=== PATIENT | male | born 1960 | race Caucasian/White ===

== ENCOUNTER 2017-09-13 06:58 | Observation (INO) | payer MEDICARE, OTHER ==
[~2017-09-13] VITALS: Ht 170.2 cm; Wt 105.7 kg
[2017-09-13] VITALS (21 sets, daily range): BP systolic 115–186; BP diastolic 54–93; PULSE 56–80; RESP 14–23; Ht 170.2 cm; Wt 105.7 kg
[~2017-09-13 06:58] MED LIST: ASPI325T4 PO; ATOR40TA68 PO; CARI350T29 PO; CLOP75TA27 PO; GABA-526 PO; HYDR-762 PO; LISI20TA11 PO; LORA-444 PO; METF500T4 PO; POTA20PA10 PO
[2017-09-13] MEDS ORDERED: METF1000 PO (08:36)
[2017-09-13] MEDS ORDERED: HYDR-902 PO (08:38)
[2017-09-13 08:46] LABS: BASOPHIL # 0.1 10^3/ul (0.0-0.1); BASOPHILS % 0.7 % (0.0-2.0); EOSINOPHILS # 0.1 10^3/ul (0.0-0.5); HEMATOCRIT 39.4 % (42.0-52.0); HEMOGLOBIN 13.1 g/dl (14.0-18.0); LYMPHOCYTES # 2.4 10^3/ul (0.8-2.9); LYMPHOCYTES % 23.9 % (15.0-51.0); MEAN CORPUSCULAR HEMOGLOBIN 29.8 pg (29.0-33.0); MEAN CORPUSCULAR HGB CONC 33.2 g/dl (32.0-37.0); MEAN CORPUSCULAR VOLUME 89.7 fl (82.0-101.0); MONOCYTE # 0.5 10^3/ul (0.3-0.9); MONOCYTES % 5.2 % (0.0-11.0); NEUTROPHIL # 6.8 10^3/ul (1.6-7.5); PLATELET COUNT 204 10^3/UL (140-415); RED BLOOD COUNT 4.39 10^6/ul (4.70-6.10); RED CELL DISTRIBUTION WIDTH 13.6 % (11.5-14.5); WHITE BLOOD COUNT 9.9 10^3/ul (4.8-10.8)
[2017-09-13 09:03] LABS: INR 0.88; PROTIME 11.9 Sec (12.2-14.2); PT RATIO 0.9
--- NOTE | 2017-09-13 09:03 | RADRPT ---
PROCEDURE: XR Chest. CLINICAL INDICATION: Preoperative TECHNIQUE: Single frontal view of the chest was obtained COMPARISON: None FINDINGS: The heart and mediastinum are within normal limits. The lungs are clear. There is no pleural effusion or pneumothorax. RPTAT: AA IMPRESSION: No acute disease. .Kervin Del Angel MD, Date Time Electronically viewed and signed by .Kervin Del Angel MD, on 09/13/2017 09:03 .S/
[2017-09-13 09:07] LABS: BILIRUBIN,INDIRECT 0.1 mg/dl (0-1.1)
[2017-09-13 09:08] LABS: ALBUMIN 3.9 g/dl (3.3-4.9); ALBUMIN/GLOBULIN RATIO 1.18; BILIRUBIN,TOTAL 0.1 mg/dl (0.2-1.3); CALCIUM 9.2 mg/dl (8.4-10.2); CREATININE 0.67 mg/dl (0.61-1.24); POTASSIUM 3.5 mmol/L (3.5-5.1); TOTAL PROTEIN 7.2 g/dl (6.1-8.1)
[2017-09-13] MEDS ORDERED: IODIXANOL LOCM 100 ML BTL ONE ×2 (09:25→10:26)
[2017-09-13] MEDS ORDERED: LIDOCAINE 1% (MDV) 20 ML INJ ONE (09:25)
[2017-09-13] MEDS ORDERED: HEPARIN 1000 UNITS/ML 10 ML INJ ONE (09:25)
[2017-09-13] MEDS ORDERED: MIDAZOLAM 1 MG/ML 2 ML INJ ONE (09:25)
[2017-09-13] MEDS ORDERED: VERAPAMIL 5 MG INJ ONE (09:26)
[2017-09-13] MEDS ORDERED: NITROGLYCERIN (IC) 100 MCG/ML INJ ONE (09:26)
[2017-09-13] MEDS ORDERED: FENTAnyl 50 MCG/ML VIAL ONE (09:26)
[2017-09-13 10:12] LABS: PARTIAL THROMBOPLASTIN TIME 24.7 Sec (25.0-35.0)
[2017-09-13] MEDS ORDERED: IODIXANOL LOCM 50 ML BTL ONE (10:25)
[2017-09-13] MEDS ORDERED: ASPIRIN 325 MG TAB ONE (10:55)
[2017-09-13] MEDS ORDERED: CLOPIDOGREL 300 MG TAB ONE ×2 (10:55→11:02)
--- NOTE | 2017-09-13 11:08 | SIPON ---
Date/Time of Note Date/Time of Note DATE: 09/13/17 TIME: 11:07 Operative Report Preoperative Diagnosis 1.[place]gin 2.Abnl MPI Postoperative Diagnosis 1.Obstructive cad Operation/Procedure Performed 1.C 2.PTCA/stent x 1 to LAD with NATHAN Surgeon see signature line executive staff assistant 1.Fabián Anesthesia: moderate sedation Estimated blood loss: minimal Transfusion Required none Specimen NA Grafts/Implants none Complications none NOHELIA SCOTT Sep 13, 2017 11:08
[2017-09-13] MEDS ORDERED: SOD CHLORIDE 0.9% 1,000 ML IV SCH (11:09)
[2017-09-13] MEDS ORDERED: ZOLPIDEM 5 MG TAB PO PRN (11:30)
[2017-09-13] MEDS ORDERED: AL HYDROX/MG HYDROX/SIMETH 30 ML CUP PO PRN (11:30)
[2017-09-13] MEDS ORDERED: ONDANSETRON 4 MG INJ IV PRN (11:30)
[2017-09-13] MEDS ORDERED: ACETAMINOPHEN 325 MG TAB PO PRN (11:30)
[2017-09-13] MEDS: OXYCODONE/ACETAMINOPHEN (5/325) TAB PO PRN ×2 (12:06→16:07)
--- NOTE | 2017-09-13 13:37 | CARRPT ---
DATE OF PROCEDURE: 09/13/2017 TYPE OF PROCEDURE: 1. Left heart catheterization. 2. Coronary angiography. 3. Percutaneous transluminal coronary angioplasty with placement of Synergy drug-eluting stent x1 t o proximal LAD, 3.5 x 24 mm. 4. Moderate conscious sedation. ATTENDING PHYSICIAN: Nohelia Scott MD REFERRING PHYSICIAN: Self-referred. INDICATION: Chest pain with positive ischemia anterior distribution, high risk marker for cardiovas cular events. BRIEF HISTORY: Mr. Pride is a 56-year-old male with history of hypertension, dyslipidemia, severe co ronary artery disease, status post prior PTCA and stent placement with bare metal stent in 05/2016 t o proximal LAD, ongoing tobacco usage, who initially presented with complaints of substernal chest p ain. The patient was placed ascending medical therapy, continued chest pain and required cardiac st ress test revealing anterior ischemia. Given these findings, referred for and presents today in ord er to undergo left heart catheterization to assess for possibly significant obstructive coronary dis ease with recurrent symptoms of chest pain and subsequent positive stress test findings. PROCEDURE: After informed consent was obtained, the patient was brought the [facility] cardiac catheterization lab where his right radial artery was prepped and draped in usual ster ile fashion. Lidocaine 2% was inserted into the right radial artery in order to achieve adequate lo kamaljit anesthesia. Using the modified Seldinger technique, the right radial artery was cannulated and a 6-Greek arterial sheath was placed. A 6-Greek JL3.5 catheter was used to cannulate the left sridhar n coronary ostium with contrast injection, multiple views of the left coronary arterial system were obtained. A JL3.5 was removed over a guidewire and JR4 was used to cannulate the right coronary art erial ostium. With contrast injection, multiple views of the right coronary arterial system obtaine d. JR4 was removed over a guidewire and after being additionally used to cross LV and measure LVEDP and pullback across the aortic valve to assess for significant gradient, which there was not and re moved. Subsequently, at this time, we directly entered into an interventional procedure given the p atient to have restenosis of proximal LAD stent in an area before this as well to approximately 90%. Subsequently, at this time, the patient had HD checked, coming back within normal limits for accep table limits for ACT. The patient had a 0.014 ____ wire past distal to the lesion in the LAD. Pret reated with a 2.5 x 15 mm balloon inflated to 14 atmospheres x2 and removed. Subsequently, this les ion was stented with a 3.5 x 24 mm drug-eluting stent inflated to 14 atmospheres, post-dilated with the stent delivery system up to 16 atmospheres. Stent delivery system was then used to post-dilate the stent overlap area and removed. Subsequently, at this time, follow up angiographic image reveal ed excellent result deployment of the stent, JADA 3 flow throughout the vessel, no signs of complica tion including perforation, dissection, but there was a diagonal one that bifurcates proximally in t his vessel that had very sluggish flow and suffered significant plaque shift. Subsequently, a 0.014 Racket [employer]er 50 guidewire was passed into the diagonal and we tentatively passed first at 2.0 and then a 1 .25 balloon unsuccessfully and tried a enrique wire into the LAD and again tried to pass this balloon unsuccessfully. Subsequently, at this time, with the wire removed after just having the wire passed through the vessel, there was significantly improved flow. Subsequently, at this time, the patient was given 200 mcg of IC nitroglycerin. Further angiograms were obtained revealing excellent result deployment of the stent, JADA 3 flow throughout the vessel, no signs of complication including perf oration or dissection, and excellent flow now within the patient's diagonal. Subsequently, at this time, the interventional guide and guidewires were removed. The patient was given 600 mg p.o. Plavi x and 325 mg of aspirin. This completed the procedure. There were no noted complications. FINDINGS: 1. CORONARY ANGIOGRAPHY: The circumflex proximally is a 3.5 mm vessel and had no significant steno sis in this area. Circ continuation AV groove is free of significant focal stenoses. There is a mi d- branching obtuse multiple 3 mm vessel with a 20% stenosis. The LAD proximally is a 3.5 mm vessel and it has a long tubular area of in-stent restenosis up to approximately 90% that bifurcates midwa y through. There is then a mid-branching diagonal in the second portion of the stented zone, which has a 70% to 80% stenosis but excellent flow. The right coronary artery was a 3.5 mm vessel had no significant focal stenosis throughout its entirety. PTCA and stent placement: Prior to PTCA and stent placement, the patient had a 90% in-stent resteno sis in the proximal LAD. Post-PTCA and stent placement, the patient had no residual stenosis, JADA 3 flow throughout the vessel, no signs of complication including perforation or dissection and addit ionally noted that the end of the procedure, the patient did have significantly improved flow in the diagonal JADA 3. Measurement left ventricular end diastolic pressure 26. TOTAL FLUOROSCOPY TIME: 14.3 minutes. TOTAL CONTRAST: 87 mL. IMPRESSION: 1. Single vessel obstructive coronary artery disease involving high grade lesions in the patient's LAD in-stent restenosis, status post successful PTCA and stent placement with drug-eluting stent 3.5 x 24 mm. 2. Elevated left heart filling pressures. 3. No significant aortic stenosis by gradient. RECOMMENDATIONS: In light of findings at this time would: 1. Maintain patient on Plavix 75 mg 1 tab p.o. daily for at least 1 year. 2. Aspirin 325 mg 1 tab p.o. daily indefinitely. 3. Maximize medical management. Aggressive risk factor reduction. 4. Patient will be admitted to the ICU for post-intervention observation and continued management o f symptoms. Dictated By: NOHELIA ZHU/MARK Conf#: [id number] DID#: [id number] CC: NOHELIA SCOTT MD;*EndCC*
[2017-09-13] MEDS: INSULIN ASPART [NOVOLOG] 3 ML PEN SC SCH ×2 (17:52→20:42)
[2017-09-13] MEDS ORDERED: GLUCOSE GEL 15 GRAM TUBE PO PRN ×2 (18:00)
[2017-09-13] MEDS ORDERED: GLUCAGON 1 MG INJ IM PRN (18:00)
[2017-09-13] MEDS ORDERED: DEXTROSE 50% 50 ML SYRINGE IV PRN ×2 (18:00)
[2017-09-13] MEDS ORDERED: GLUCOSE GEL 15 GRAM TUBE BUCCAL PRN (18:00)
[2017-09-13] MEDS ORDERED: morphine 2 MG INJ IV PRN (18:30)
[2017-09-13] MEDS: CARISOPRODOL 350 MG TAB PO PRN (18:39)
[2017-09-13] MEDS: NICOTINE (21 MG/24 HR) PATCH TRANSDERM SCH (20:55)
[2017-09-14] VITALS (13 sets, daily range): BP systolic 113–142; BP diastolic 52–76; PULSE 54–73; RESP 13–23
[2017-09-14] MEDS: OXYCODONE/ACETAMINOPHEN (5/325) TAB PO PRN (01:55)
[2017-09-14] MEDS ORDERED: ACCU-CHEK XX SCH ×2 (02:00)
[2017-09-14] MEDS: CARISOPRODOL 350 MG TAB PO PRN (03:51)
--- NOTE | 2017-09-14 03:58 | HP ---
DATE OF ADMISSION: 09/13/2017 REASON FOR ADMISSION: Elective cardiac angiogram. HISTORY OF PRESENT ILLNESS: The patient is a 56-year-old [place] male, very well known to me from recent about slightly more than a year ago. At that time, he had an acute [place] and coronary art cathi disease where the LAD was stented. The patient continues to follow up with Dr. Mcnamara and then he presented again with chest pain. He now underwent angiogram today, which showed in-stent stenos is in the LAD, high-grade stenosis. The LAD proximally is a 3.5 mm vessel. It has long tubular are a of in-stent restenosis up to approximately 90% that bifurcates midway through. underwent pe rcutaneous transluminal coronary angioplasty with placement of Synergy drug-eluting stent x1 to the proximal LAD. Patient tolerated procedure well. This was done through the right radial approach. Patient now in the intensive care unit in stable condition. PAST MEDICAL HISTORY: Includes coronary artery disease, diabetes mellitus, hypertension, dyslipidem ia, anxiety disorder, actively smoking, also history of low back pain and max back spasms. MEDICATIONS: Include: 1. Lipitor 40 mg q.6. 2. Plavix 75 mg daily. 3. Lisinopril 10 mg daily. 4. Aspirin 325 daily. 5. [place] 10/325 q.6 p.r.n. 6. Metformin 1000 b.i.d. SOCIAL HISTORY: Positive tobacco. Alcohol socially. IV drug abuse, denies. PHYSICAL EXAMINATION: VITAL SIGNS: Temperature 98.1, pulse 79, respirations 18, blood pressure 116/69, saturation 94%. GENERAL: The patient is in no acute distress. HEENT: Normocephalic, atraumatic. CARDIOVASCULAR: S1, S2, regular rate. LUNGS: Clear. ABDOMEN: Soft, nontender. EXTREMITIES: No clubbing, cyanosis or edema. No active bleeding in the right wrist area. LABORATORY DATA: White count is 9.9, hemoglobin 13.1, hematocrit 39, platelet count is 204 with nor mal differential. Chemistry: Sodium 143, potassium of 3.5, chloride 103, bicarbonate 30, BUN is 8, creatinine 0.67, glucose of 141. Last glucose of 133. LFTs are normal. Cholesterol is 156, LDL 4 6, HDL 31, triglycerides high at 394. INR 0.88. IMAGING: Chest x-ray done this morning reveals no acute disease. EKG: On admission, shows incomplete right bundle branch block, nonspecific ST abnormality at 63 joanne ts per minute. ASSESSMENT AND PLAN: This is a 56-year-old [place] male with history of diabetes mellitus, hyperte nsion, coronary artery disease, anxiety disorder, back pain, who presented with recurrent symptoms o f chest pain, was found to have LAD stent restenosis. 1. Coronary artery disease, status post stenting of the LAD. The patient will likely need to feliciano nue on aspirin, Plavix, statins. Further management per Dr. Mcnamara. 2. Diabetes mellitus. Continue metformin upon discharge. Glucose level in the low 100s. 3. Low back pain. Opioids as needed. Avoid NSAIDs. 4. Anxiety disorder. DISPOSITION: Likely in the a.m. The patient will be monitored in the intensive care unit overnight . We will follow. Dictated By: TIMMY SWIFT/MARK Conf#: [id number] DID#: [id number]
[2017-09-14 05:21] LABS: BASOPHIL # 0.1 10^3/ul (0.0-0.1); BASOPHILS % 0.6 % (0.0-2.0); EOSINOPHILS # 0.1 10^3/ul (0.0-0.5); EOSINOPHILS % 1.1 % (0.0-7.0); HEMATOCRIT 37.4 % (42.0-52.0); HEMOGLOBIN 12.5 g/dl (14.0-18.0); LYMPHOCYTES # 1.7 10^3/ul (0.8-2.9); LYMPHOCYTES % 21.7 % (15.0-51.0); MEAN CORPUSCULAR HEMOGLOBIN 30.3 pg (29.0-33.0); MEAN CORPUSCULAR HGB CONC 33.4 g/dl (32.0-37.0); MEAN CORPUSCULAR VOLUME 90.6 fl (82.0-101.0); MEAN PLATELET VOLUME 10.3 fl (7.4-10.4); MONOCYTE # 0.4 10^3/ul (0.3-0.9); MONOCYTES % 4.6 % (0.0-11.0); NEUTROPHIL # 5.7 10^3/ul (1.6-7.5); NEUTROPHILS % 71.7 % (39.0-77.0); PLATELET COUNT 174 10^3/UL (140-415); RED BLOOD COUNT 4.13 10^6/ul (4.70-6.10); RED CELL DISTRIBUTION WIDTH 13.4 % (11.5-14.5)
[2017-09-14 05:45] LABS: CALCIUM 9.1 mg/dl (8.4-10.2); CREATININE 0.57 mg/dl (0.61-1.24); POTASSIUM 3.5 mmol/L (3.5-5.1)
[2017-09-14 05:57] LABS: CK-MB 3.41 ng/ml (0.0-2.4)
[2017-09-14 05:58] LABS: TROPONIN-I 0.497 ng/ml (0.00-0.12)
[2017-09-14] MEDS: NICOTINE (21 MG/24 HR) PATCH TRANSDERM SCH (08:16)
[2017-09-14] MEDS: INSULIN ASPART [NOVOLOG] 3 ML PEN SC SCH ×2 (08:16→11:30)
--- NOTE | 2017-09-14 08:25 | PDOCDIS ---
Discharge Instructions CONDITION Patient Condition: Stable HOME CARE INSTRUCTIONS: Diet Instructions: 2gm NaSpecial Diet: low fat, low carb ACTIVITY: Activity Restrictions: Slowly Increase Activity FOLLOW UP/APPOINTMENTS Follow-up Plan follow up with PCP and cardiology, see attached prescriptions TIMMY DAVIS MD Sep 14, 2017 08:25
[2017-09-14] MEDS ORDERED: CARI350T29 PO (08:27)
[2017-09-14] MEDS ORDERED: ASPIRIN (EC) 325 MG TAB PO SCH (09:00)
[2017-09-14] MEDS ORDERED: CLOPIDOGREL 75 MG TAB PO SCH (09:00)
--- NOTE | 2017-09-14 12:09 | DS ---
DATE OF ADMISSION: 09/13/2017 DATE OF DISCHARGE: 09/14/2017 REASON FOR ADMISSION: Elective cardiac angiogram. HOSPITAL COURSE: The patient is a 56-year-old [place] male with a history of coronary artery disea se, diabetes mellitus, history of CT, status post LAD stenting more than a year ago. Patient contin ue to follow up with Dr. Mcnamara and he continues to have chest pain. We decided to proceed with a cardiac angiogram which was done on 09/13/2017. Patient underwent percutaneous transluminal coronar y angioplasty with placement of Synergy drug-eluting stent x1 for the proximal LAD. See exact angio gram report. Recommend to keep him on Plavix 75 mg daily for at least 1 year, aspirin 325 indefinit ashish and maximum medical management. The patient was monitored overnight in the intensive care unit and is doing well. Temperature 98.6, pulse 63, respirations 19, blood pressure 115/61, saturation 9 7%. The patient has more tendency for bradycardia and the heart rate has been in the 50s as well. The patient is chest pain free. Right radial arm is no bruising and no bleeding. MEDICATIONS: The patient will be discharged today to home with the following medications: 1. Plavix 75 mg daily. 2. Atorvastatin 4 mg at bedtime. 3. Aspirin 325 daily. 4. Lisinopril 20 mg daily. 5. Metformin 1000 b.i.d. 6. [place] 10/325 q.8h. p.r.n. for moderate pain. The patient has back pain and back spasms. 7. Soma 350 t.i.d. p.r.n. for muscle spasms. FINAL DIAGNOSES: 1. Coronary artery disease, status post stenting of left anterior descending, restenosis. 2. Diabetes mellitus. 3. Hypertension. 4. Dyslipidemia. 5. History of myocardial infarction. 6. Anxiety disorder. 7. Low back pain. 8. Aggressive diabetes mellitus. 9. Anxiety disorder. DIET: Two-gram sodium, low fat, low carb diet. ACTIVITY: As tolerated. DISCHARGE INSTRUCTIONS: The patient is instructed to follow up with his PCP and cardiology within 1 -2 weeks. If any change in condition, need to call 911 or go to nearest emergency department. Smok ing cessation was advised as well as, as during his stay was on a nicotine patch. Again, encouraged him to stop smoking and have a better lifestyle. Case discussed yesterday as well with his in detail. CONDITION ON DISCHARGE: Good. The patient to follow up again with the above doctors. Dictated By: TIMMY SWIFT/MARK Conf#: [id number] DID#: [id number]
--- NOTE | 2017-09-14 12:49 | CONS ---
Date/Time of Note Date/Time of Note DATE: 09/14/17 TIME: 12:36 Assessment/Plan Assessment/Plan Chief Complaint/Hosp Course IMP: 1.cad s/p PTCA/stent x 1 LAD 2.HTN 3. HL 4.abnl mpi-prior to stent 5.DM Recc: -OK for d/c -Continue asa/plavix -Resume ACEI as ouutpatient -Continue statin -D/C planning -outpatient f/u scheduled 10/09. -smokinf cessation and given chantix Problems: Consultation Date/Type/Reason Admit Date/Time Sep 13, 2017 at 11:09 Initial Consult Date 09/14/2017 Type of Consultation: cardiology Reason for Consultation cad s/p stent Referring Provider: TIMMY DAVIS MD Exam/Review of Systems Vital Signs Vitals Vital Signs Date Time Temp Pulse Resp B/P Pulse Ox O2 Delivery O2 Flow Rate FiO2 09/14/17 12:00 54 09/14/17 11:00 22 118/52 96 Room Air 09/14/17 08:00 98.4 Intake and Output 09/13/17 09/13/17 09/14/17 15:00 23:00 07:00 Intake Total 225 ml 1900 ml 175 ml Output Total 400 ml 500 ml Balance -175 ml 1900 ml -325 ml Exam Review of Systems: CONSTITUTIONAL: No fevers, chills. PULMONARY: No sob CARDIOVASCULAR: No chest pain/palpitations GASTROINTESTINAL: No nausea/vomiting. GENITOURINARY: No hematuria/dysuria. MUSCULOSKELETAL: No myagias/arthalgias. PSYCHIATRIC: The patient denies depression. NEUROLOGIC: No weakness Constitutional: alert, oriented Psych: no complaints Head: normocephalic ENMT: mucosa pink and moist Neck: jvd (9 cm water), supple Respiratory: diminished breath sounds (at bases/B) Cardiovascular: regular rate and rhythm Gastrointestinal: non-tender, soft Musculoskeletal: muscle tone (normal) Extremities: edema (none) Skin: other (No focal deficits) Results Result Diagram: 09/14/17 0447 09/14/17 0447 Results 24 hrs Laboratory Tests Test 09/13/17 17:28 09/13/17 20:39 09/14/17 04:47 09/14/17 08:08 Bedside Glucose 190 122 142 White Blood Count 8.0 Red Blood Count 4.13 L Hemoglobin 12.5 L Hematocrit 37.4 L Mean Corpuscular Volume 90.6 Mean Corpuscular Hemoglobin 30.3 Mean Corpuscular Hemoglobin Concent 33.4 Red Cell Distribution Width 13.4 Platelet Count 174 Mean Platelet Volume 10.3 Neutrophils % 71.7 Lymphocytes % 21.7 Monocytes % 4.6 Eosinophils % 1.1 Basophils % 0.6 Nucleated Red Blood Cells % 0.0 Neutrophils # 5.7 Lymphocytes # 1.7 Monocytes # 0.4 Eosinophils # 0.1 Basophils # 0.1 Nucleated Red Blood Cells # 0.0 Sodium Level 142 Potassium Level 3.5 Chloride Level 108 Carbon Dioxide Level 30 Anion Gap 8 Blood Urea Nitrogen 5 L Creatinine 0.57 L Glucose Level 123 Calcium Level 9.1 Creatine Kinase 117 Creatine Kinase Index 2.9 Creatinine Kinase MB (Mass) 3.41 H Troponin I 0.497 *H Test 09/14/17 12:15 Bedside Glucose 136 Medications Medications Current Medications Aspirin (Ecotrin) 325 mg DAILY PO Last administered on 09/14/17 08:16; Admin Dose 325 MG; Start 09/14/17 at 09:00 Clopidogrel Bisulfate (plaVIX) 75 mg DAILY PO Last administered on 09/14/17 08:16; Admin Dose 75 MG; Start 09/14/17 at 09:00 Acetaminophen (Tylenol Tab) 650 mg Q4H PRN PO NON-CARDIAC PAIN LEVEL 1-3; Start 09/13/17 at 11:30 Oxycodone/ Acetaminophen (Percocet (5/ 325)) 1 tab Q4H PRN PO REPORTED NON- CARDIAC PAIN 4-7 Last administered on 09/14/17 01:55; Admin Dose 1 TAB; Start 09/13/17 at 11:30 Al Hydrox/Mg Hydrox/Simethicone (Mag-Al Plus) 30 ml Q4H PRN PO GASTROINTESTINAL UPSET; Start 09/13/17 at 11:30 Ondansetron HCl (Zofran Inj) 4 mg Q4H PRN IV NAUSEA AND/OR VOMITING; Start at 11:30 Diagnostic Test (Pha) (Accu-Chek) 1 ea 02 XX ; Start 09/14/17 at 02:00 Miscellaneous Information 1 ea NOTE XX ; Start 09/13/17 at 18:00 Glucose (Glutose) 15 gm Q15M PRN PO DECREASED GLUCOSE; Start 09/13/17 at 18:00 Glucose (Glutose) 22.5 gm Q15M PRN PO DECREASED GLUCOSE; Start 09/13/17 at 18: 00 Dextrose (D50w Syringe) 25 ml Q15M PRN IV DECREASED GLUCOSE; Start 09/13/17 at 18:00 Dextrose (D50w Syringe) 50 ml Q15M PRN IV DECREASED GLUCOSE; Start 09/13/17 at 18:00 Glucagon (Glucagen) 1 mg Q15M PRN IM DECREASED GLUCOSE; Start 09/13/17 at 18: 00 Glucose (Glutose) 15 gm Q15M PRN BUCCAL DECREASED GLUCOSE; Start 09/13/17 at 18:00 Morphine Sulfate (morphine) 2 mg Q4H PRN IV MODERATE PAIN LEVEL 4-6 Last administered on 09/13/17 20:50; Admin Dose 2 MG; Start 09/13/17 at 18:30 Carisoprodol (Soma) 350 mg Q8H PRN PO MUSCLE SPASMS Last administered on 03:51; Admin Dose 350 MG; Start 09/13/17 at 18:30 Nicotine (Nicoderm 21 Mg/ 24hr) 1 patch DAILY TRANSDERM Last administered on 08:16; Admin Dose 1 PATCH; Start 09/13/17 at 19:30 NOHELIA SCOTT Sep 14, 2017 12:47
--- NOTE | 2017-09-15 13:13 | RADRPT ---
Vent Rate: 75 bpm RR Interval: 0 msec MS Interval: 146 msec QRS Duration: 138 msec QT Interval: 420 msec QTC Interval: 469 msec P-R-T [place]: 65 - 20 - 46 degrees Normal sinus rhythm Right bundle branch block Abnormal ECG Electronically Signed By: Daren Schwartz [id number]
--- NOTE | 2017-09-15 13:13 | RADRPT ---
Vent Rate: 69 bpm RR Interval: 0 msec MO Interval: 148 msec QRS Duration: 108 msec QT Interval: 430 msec QTC Interval: 460 msec P-R-T [place]: 73 - 59 - 50 degrees Normal sinus rhythm Incomplete right bundle branch block Nonspecific T wave abnormality Prolonged QT Abnormal ECG Electronically Signed By: Daren Schwartz [id number]
--- NOTE | 2017-09-15 13:13 | RADRPT ---
Vent Rate: 53 bpm RR Interval: 0 msec NM Interval: 150 msec QRS Duration: 112 msec QT Interval: 430 msec QTC Interval: 403 msec P-R-T [place]: 51 - 27 - 31 degrees Sinus bradycardia Incomplete right bundle branch block Nonspecific T wave abnormality Abnormal ECG Electronically Signed By: Daren Schwartz [id number]
== END 2017-09-14 13:00 | disposition home or self-care (01) ==
LOC: SDS 06:58 → ICU 11:09
PROVIDERS: ADMIT Internal Medicine; ATTEND Internal Medicine
DX: I25.10 Atherosclerotic heart disease of native coronary artery without angina pectoris (principal); Z95.5 Presence of coronary angioplasty implant and graft; I10 Essential (primary) hypertension; E11.9 Type 2 diabetes mellitus without complications; E78.00 Pure hypercholesterolemia, unspecified; E78.5 Hyperlipidemia, unspecified; I25.2 Old myocardial infarction; F41.9 Anxiety disorder, unspecified; F17.210 Nicotine dependence, cigarettes, uncomplicated; M54.5 Low back pain; Z79.82 Long term (current) use of aspirin; Z79.02 Long term (current) use of antithrombotics/antiplatelets; Z79.84 Long term (current) use of oral hypoglycemic drugs
CPT/HCPCS: 71010; 80048; 80053; 80061; 82550; 82553; 82962; 84484; 85025; 85610; 85730; 87081; 93005; 93458; C1874; C9600; G0378; J1644; J1815; J2250; J2270; J3010; Q9967